=== PATIENT | male | born 1980 | race Caucasian/White ===

== ENCOUNTER 2018-01-07 08:21 | Day surgery (SDC) | payer MEDICAID ==
[2018-01-07] MEDS ORDERED: LIDOCAINE 2% MDV (20MG/ML) 20ML VIAL IV ONE (08:22)
[2018-01-07] MEDS ORDERED: PROPOFOL 10 MG/ML VIAL IV ONE (08:22)
--- NOTE | 2018-01-07 12:50 | Operative Note ---
DATE OF SURGERY: 01/07/2018 REFERRING PROVIDER: Colby Galdamez MD PREOPERATIVE DIAGNOSIS: Intractable heartburn, nausea, and vomiting. POSTOPERATIVE DIAGNOSES: 1. Irregular GE junction, rule out short-segment Salinas's. 2. Ulcerative esophagitis. 3. Small hiatal hernia. OPERATION: ESOPHAGOGASTRODUODENOSCOPY with biopsy. PROCEDURE: After informed consent was obtained, the patient was placed in the left lateral decubitus position in the endoscopy suite, sedated and monitored by the Department of Anesthesia. Once sedated, a well-lubricated TCS234 gastroscope was placed in the posterior oropharynx and under direct visualization passed to the proximal esophagus. The endoscope was advanced to the proximal, mid and distal esophagus. The GE junction demonstrated grade B esophagitis. There was also irregularity to the squamocolumnar border and a small hiatal hernia. The gastric body and subdiaphragmatic stomach were unremarkable. Otherwise, the pylorus, duodenal bulb and sweep were unremarkable. J-turn views of the proximal stomach revealed a small hiatal hernia, but no other abnormalities. The endoscope was then straightened. GE junction biopsies were obtained. The endoscope was removed from the patient. No new findings noted. RECOMMENDATIONS: At this point, I would suggest the patient take a [id number] PPI. He should avoid any smoking of any sort as possible. In the past, he had gastric-emptying study, which actually demonstrated rapid emptying rather than slow emptying. Therefore, some of his cramping perhaps could be a form of dumping, but it may also be irritable bowel . I will provide him wit castaneda script for his [id number]-rec-ypa PPI and antispasmodic. I will repeat his upper endoscopy in 6-8 weeks. As always, thank you for allowing me to participate in the health care of your patients. CC: Colby Galdamez MD [facility]
== END 2018-01-07 10:05 | disposition home or self-care (01) ==
LOC: HOP 08:21
PROVIDERS: ATTEND Internal Medicine Gastroenterology
DX: R12 Heartburn (principal); R11.2 Nausea with vomiting, unspecified; K22.6 Gastro-esophageal laceration-hemorrhage syndrome; K22.10 Ulcer of esophagus without bleeding; K44.9 Diaphragmatic hernia without obstruction or gangrene; K21.9 Gastro-esophageal reflux disease without esophagitis

== ENCOUNTER 2018-02-18 09:40 | Day surgery (SDC) | payer MEDICAID ==
[2018-02-18] MEDS ORDERED: PROPOFOL 10 MG/ML VIAL IV ONE (09:41)
[2018-02-18] MEDS ORDERED: LIDOCAINE 2% MDV (20MG/ML) 20ML VIAL IV ONE (09:41)
--- NOTE | 2018-02-19 12:30 | Operative Note ---
DATE OF SURGERY: 02/18/2018 OPERATION: ESOPHAGOGASTRODUODENOSCOPY. PREOPERATIVE DIAGNOSIS: Esophagitis followup. POSTOPERATIVE DIAGNOSES: 1. Persistent esophagitis, perhaps less severe. 2. Small hiatal hernia. PROCEDURE: After informed consent was obtained from the patient, he was placed in the left lateral decubitus position in the endoscopy suite, sedated and monitored by the department of anesthesia. A well-lubricated [id number] gastroscope was placed in the posterior oropharynx and under direct visualization passed to the proximal esophagus. The endoscope was advanced through the proximal, mid, and distal esophagus. The GE junction demonstrated inflammatory changes consistent with LA grade B esophagitis. There were no deep ulcers noted. There was a small hiatal hernia in the subdiaphragmatic stomach including body and antrum as well as the pylorus, duodenal bulb, and sweep were unremarkable. J-turn views of the proximal stomach again revealed a small hiatal hernia. The endoscope was straightened and retracted from the patient with no new findings noted. RECOMMENDATIONS: The patient should refrain from the use of any tobacco or inhaled products including marijuana. This may exacerbate his current reflux symptoms. If, however, he does not notice any improvement despite being on a twice per day PPI with lifestyle changes, perhaps consideration of Tonio fundoplication or a LINX surgery would be appropriate. As always, thank you for allowing me to participate in the healthcare of your patients. CC: MD MARIA E Gregory
== END 2018-02-18 11:26 | disposition home or self-care (01) ==
LOC: HOP 09:40
PROVIDERS: ATTEND Internal Medicine Gastroenterology
DX: K22.10 Ulcer of esophagus without bleeding (principal); K44.1 Diaphragmatic hernia with gangrene; Z72.0 Tobacco use